=== PATIENT | female | born 1970 | race Two or more races ===

== ENCOUNTER 2018-11-24 09:32 | Emergency (ER) | payer BC ==
[~2018-11-24] VITALS: Ht 157.5 cm; Wt 70.2 kg
--- NOTE | 2018-11-24 10:06 | NUR ---
Pt ambulates with steady gait and balance to room from bathroom.
[2018-11-24] MEDS ORDERED: ONDANSETRON 2MG/ML, 2ML ONE (10:17)
[2018-11-24] MEDS ORDERED: MORPHINE SULFATE 4 MG/ML, 1ML ONE (10:18)
[2018-11-24 10:25] LABS: BASOPHILS # (AUTO) 0.05 x10^3/uL (0-0.1); BASOPHILS % (AUTO) 0 % (0-1); EOSINOPHILS # (AUTO) 0.03 x10^3/uL (0-0.4); EOSINOPHILS % (AUTO) 0 % (1-7); LYMPHOCYTES # (AUTO) 2.32 x10^3/uL (1-3.4); LYMPHOCYTES % (AUTO) 19 % (22-44); MD NO; MEAN CORPUSCULAR HEMOGLOBIN 28.5 pg (27.0-34.8); MEAN CORPUSCULAR VOLUME 86.3 fL (80-100); MEAN PLATELET VOLUME 9.4 fL (7.4-10.4); MONOCYTES # (AUTO) 0.58 x10^3/uL (0.2-0.8); MONOCYTES % (AUTO) 5 % (2-9); NEUTROPHILS # (AUTO) 9.45 x10^3/uL (1.8-6.8); NEUTROPHILS % (AUTO) 76 % (42-75); PLATELET COUNT 300 x10^3/uL (130-400); RED BLOOD COUNT 4.76 x10^6/uL (3.82-5.3); RED CELL DISTRIBUTION WIDTH 13.5 % (9.6-15.2)
[2018-11-24] MEDS ORDERED: ONDANSETRON 2MG/ML, 2ML IVPush ONE (10:30)
[2018-11-24] MEDS ORDERED: SODIUM CHLORIDE FLUSH 10ML SYR IVF ONE (10:30)
[2018-11-24] MEDS ORDERED: MORPHINE SULFATE 4 MG/ML, 1ML IVPush PRN (10:30)
--- NOTE | 2018-11-24 10:34 | NUR ---
Pt transported on gurney to ultrasound. Pt medicated prior to transfering to ultrasound from ED. NADN. All safety measures in place.
[2018-11-24 10:38] LABS: ALBUMIN 4.1 g/dL (3.4-5.0); ANION GAP 8 mmol/L (5-15); CALCIUM 9.2 mg/dL (8.5-10.1); CHLORIDE 106 mmol/L (98-107); CREATININE 0.84 mg/dL (0.55-1.02)
[2018-11-24 10:52] LABS: MICROSCOPIC INDICATED
[2018-11-24 10:59] LABS: CULTURE INDICATED? NO
--- NOTE | 2018-11-24 11:10 | NUR ---
Pt remains at [facility] on [facility] [place] at this time and is not in ED room.
[2018-11-24] MEDS ORDERED: OMNIPAQUE 350 MG/ML, 100ML BOTTLE ONE (13:13)
[2018-11-24 13:24] VITALS: BP 107/60
== END 2018-11-24 13:26 | disposition home or self-care (01) ==
LOC: ED 10:14
DX: N13.2 Hydronephrosis with renal and ureteral calculous obstruction (principal)
CPT/HCPCS: 36415; 74177; 76830; 80048; 81001; 82040; 84703; 85025; 96374; 96375; 99284; J2405; Q9967